=== PATIENT | male | born 1965 | race Two or more races ===

== ENCOUNTER 2025-09-18 12:00 | Inpatient (IN) | payer OTHER ==
[2025-09-11 13:53] LABS: BASO % 1.0 % (0.1-1.2); EOS # 0.33 (0.04-0.54); EOS % 4.7 % (0.7-7.0); LYMPH # 1.18 (1.18-3.74); LYMPH % 16.8 % (19.3-53.1); MEAN PLATELET VOLUME 11.20 fl (9.4-12.4); MONO # 0.47 (0.24-0.82); MONO % 6.7 % (4.7-12.5); NEUT # 4.96 (1.56-6.13); NEUT % 70.5 % (34.0-71.1); RED CELL DISTRIBUTION WIDTH 15.1 % (11.6-14.4)
[2025-09-11 14:02] LABS: URINE APPEARANCE Clear; URINE BILIRRUBIN Negative (NEGATIVE); URINE BLOOD Negative; URINE COLOR Yellow; URINE GLUCOSE Negative (NEGATIVE); URINE KETONE Negative (NEGATIVE); URINE LEUKOCYTE Moderate; URINE NITRATE Negative; URINE PROTEIN Trace (NEGATIVE); URINE UROBILINOGEN 0.2 E.U./dl
[2025-09-11 14:04] LABS: COVID-19 AG NEGATIVE (NEGATIVE)
[2025-09-11 14:06] LABS: URINE BACTERIA 139.1 uL (0.0-1933); URINE EPITHELIAL CELLS 7.8 uL (0.0-38.8); URINE WBC 179.3 uL (0.0-23.2)
[2025-09-11 14:07] LABS: URINE CAST 0.14 uL (0.0-1.40); URINE RBC 1.3 uL (0.0-20.8)
[2025-09-11 14:10] VITALS: BP 154/95
[2025-09-11 14:21] LABS: BUN CREA RATIO 11.0 (7.0-25.0); CREATININE SERUM 1.41 mg/dL (0.70-1.30); GFR 51.1; GLUCOSE FASTING 103.0 mg/dL (65-100); OSMOLALITY SERUM 285.0 MOSM/KG (275-295)
[2025-09-11 14:24] LABS: INR 1.03
[~2025-09-18] VITALS: Ht 188 cm; Wt 83.0 kg
[~2025-09-18 12:00] MED LIST: AMLODIPINE-OLM1 EAC2 PO; CEFAZOLIN SODIUM 1,000 MG VIAL IV ONE; CEFAZOLIN SODIUM 1,000 MG VIAL ONE; ENOXAPARIN SODIUM 40 MG/0.4 ML SYRINGE SUBCUTANEO ONE; GENTAMICIN SULFATE 40 MG/ML VIAL IR ONE; GENTAMICIN SULFATE 40 MG/ML VIAL ONE; HEMOSTATIC MATRIX 1 KIT KIT TOP ONE; HYDROCHLOROTH12.5 M2 PO; MORPHINE SULFATE 4 MG/ML CARTRIDGE IV PRN; ONDANSETRON HCL 2 MG/ML VIAL IV PRN; OxyCODONE HCL 5 MG TABLET (ROXICODONE) PO PRN; RINGERS SOLUTION,LACTATED 1,000 ML IV SCH; SURGIFLO APPLICATOR 1 EACH APPL TOP ONE; VASOTEC20 M1 PO
[2025-09-18] MEDS ORDERED: hydrALAZINE HCL 20 MG VIAL ONE (13:09)
[2025-09-18] MEDS ORDERED: hydrALAZINE HCL 20 MG VIAL IV PRN (13:45)
[2025-09-18 13:51] LABS: BASO % 0.5 % (0.1-1.2); EOS # 0.24 (0.04-0.54); EOS % 1.6 % (0.7-7.0); LYMPH # 1.56 (1.18-3.74); LYMPH % 10.1 % (19.3-53.1); MEAN PLATELET VOLUME 10.50 fl (9.4-12.4); MONO # 0.69 (0.24-0.82); MONO % 4.5 % (4.7-12.5); NEUT # 12.75 (1.56-6.13); NEUT % 82.8 % (34.0-71.1); RED CELL DISTRIBUTION WIDTH 14.6 % (11.6-14.4)
[2025-09-18 14:33] LABS: BUN CREA RATIO 10.0 (7.0-25.0); CREATININE SERUM 1.51 mg/dL (0.70-1.30); GFR 47.21; GLUCOSE FASTING 103.0 mg/dL (65-100); OSMOLALITY SERUM 286.0 MOSM/KG (275-295)
[2025-09-18] MEDS ORDERED: METOPROLOL TARTRATE 5MG/5ML AMPUL IV PRN (15:00)
[2025-09-18 16:00] VITALS: BP 167/110; O2SAT 96
[2025-09-18] MEDS ORDERED: GABAPENTIN 300 MG CAPSULE PO SCH (17:00)
[2025-09-18] MEDS ORDERED: FAMOTIDINE/PF 20 MG/2 ML VIAL IV SCH (21:00)
[2025-09-18] MEDS ORDERED: DOCUSATE SODIUM 100MG CAP PO SCH (21:00)
[2025-09-18] MEDS ORDERED: CEFAZOLIN SODIUM 1,000 MG VIAL IV SCH (21:00)
[2025-09-19 00:30] VITALS: BP 142/81; O2SAT 97
[2025-09-19 06:25] LABS: BASO % 0.3 % (0.1-1.2); EOS # 0.01 (0.04-0.54); EOS % 0.1 % (0.7-7.0); LYMPH # 0.57 (1.18-3.74); LYMPH % 4.4 % (19.3-53.1); MEAN PLATELET VOLUME 11.60 fl (9.4-12.4); MONO # 0.74 (0.24-0.82); MONO % 5.7 % (4.7-12.5); NEUT # 11.57 (1.56-6.13); NEUT % 89.3 % (34.0-71.1); RED CELL DISTRIBUTION WIDTH 15.1 % (11.6-14.4)
[2025-09-19 07:14] LABS: BUN CREA RATIO 10.0 (7.0-25.0); CREATININE SERUM 1.84 mg/dL (0.70-1.30); GFR 37.58; GLUCOSE FASTING 105.0 mg/dL (65-100); OSMOLALITY SERUM 284.0 MOSM/KG (275-295)
[2025-09-19 08:38] VITALS: BP 158/89
[2025-09-19] MEDS ORDERED: HYDROCHLOROTHIAZIDE 12.5 MG CAPSULE PO SCH (09:00)
[2025-09-19] MEDS ORDERED: ENOXAPARIN SODIUM 40 MG/0.4 ML SYRINGE SUBCUTANEO SCH (09:00)
[2025-09-19] MEDS ORDERED: ENALAPRIL MALEATE 20 MG TABLET PO SCH (09:00)
== END 2025-09-19 18:59 | disposition home or self-care (01) | DRG 718 ==
LOC: CIR.AMB 12:00 → EDSTATUS 12:15 → CIR.AMB 12:15 → SURG 12:15 → O/R 13:42 → SURH 14:08
PROVIDERS: ADMIT Urology; ATTEND Urology
PROC: 8E0W4CZ Robotic Assisted Procedure of Trunk Region, Percutaneous Endoscopic Approach (ICD-10-PCS; 2025-09-18)
PROC: 0VB04ZZ Excision of Prostate, Percutaneous Endoscopic Approach (ICD-10-PCS; principal; 2025-09-18 07:00)
DX: N40.1 Benign prostatic hyperplasia with lower urinary tract symptoms (principal)
CPT/HCPCS: 55867; S2900